=== PATIENT | female | born 1985 | race Caucasian/White ===

== ENCOUNTER 2022-06-18 09:15 | Day surgery (SDC) | payer MEDICAID, SELFPAY ==
[2022-06-18] VITALS (7 sets, daily range): BP systolic 93–115; BP diastolic 30–63; PULSE 51–72; RESP 14–18; TEMP 36.2–36.6; O2SAT 99–100; BMI 32.3
--- NOTE | 2022-06-18 09:30 | PCM.HP.BLA ---
History and Physical Date of Admission: 06/18/22 Chief complaint: Permanent sterilization History present illness: 36-year-old arrives for desired permanent sterilization via bilateral salpingectomy. All questions answered and consent signed Obstetric history: with a history of 3 vaginal deliveries Past medical history: None Past surgical history: Hernia repair Medications: None Allergies: Penicillin Social history: Former smoker, denies alcohol or drug use Family history: Denies history DVT or PE Review of systems: Besides above pertinent positives a full review of systems was performed and found to be negative Physical exam: Vitals: Pending General: Normal-appearing no acute distress HEENT: Normocephalic/atraumatic no cervical lymphadenopathy Cardiac/respiratory: No use of accessory muscles, nonlabored breathing Abdomen: Soft, nontender, obese Extremities: No peripheral edema normal peripheral pulses Psych: Normal affect and demeanor nonpressured speech Assessment and plan: 36-year-old desires permanent sterilization scheduled for bilateral salpingectomy. Patient understands risk of the procedure include but are not limited to visceral or vascular injury, prolonged hospitalization, blood loss and need for transfusion, reoperation. Patient state understanding and wished to proceed. All questions were answered and consent was signed.
[2022-06-18] MEDS: Lactated Ringers 1,000 ML 120 ML IV ×2 (09:50→13:10)
[2022-06-18 09:55] LABS: Internal QC Validated? YES +Cl - CLEAR BKGD; Pregnancy, Urine Negative Negative
--- NOTE | 2022-06-18 10:50 | FALS_PTH ---
PATIENT: JULIO MENJIVAR [place] [facility] [id number] AGE/SX: 36/F ROOM: RE06/18/[address]: Dr. Dontrell Martinez MD : 1985 BED: DIS: 06/18/2022 SPEC #: [id number] RECD: 06/18/22 16:16 STATUS: BRITTANY CASTILLO #: [id number] KIMBERLY: 06/18/22 10:[address]: Dontrell Martinez DEPT: SURGICAL PATHOLOGY RECD BY: Linsey Milner ENTERED: 06/19/22 10:04 SP TYPE: FALL TUBES OTHR DR: Dr. Nomi Atkins MD Tissues: Fallopian tube Procedures: Surgery Specimen Level II Surgery Specimen Level IV HEADER OPERATION: Laparoscopic salpingectomy PRE-OP DIAGNOSIS: Sterilization TISSUE SUBMITTED: Bilateral fallopian tubes MICROSCOPIC DIAGNOSIS Right and left fallopian tubes, bilateral salpingectomies: Complete cross-sections of right and left fallopian tubes. Benign paratubal cyst of one fallopian tube. AM:maria m 06/20/2022 MICROSCOPIC DESCRIPTION Slides are reviewed. GROSS DESCRIPTION Received in fixative is one container labeled with the patient's name and designated bilateral fallopian tubes. The specimen consists of bilateral fallopian tubes including fimbrial ends measuring 6.0 cm in length and 0.6 cm in diameter and 5.5 cm in length and 0.5 cm in diameter. One of the fallopian tubes also shows a paratubal cyst filled with clear fluid measuring 1.0 cm in greatest dimension. The fallopian tubes are not identified as right or left. Sections reveal unremarkable cut surfaces. [employer] sections are submitted in two cassettes as follows: 1 - one fallopian tube, 2 - second fallopian tube and paratubal cyst. / SJ:maria m 06/19/2022 TC:5 CPT: 93715, 09656
--- NOTE | 2022-06-18 12:18 | DCINST_ITS ---
Discharge Instructions Diet Discharge Diet: No restrictions Activity Discharge Activity: Return to Normal Activity, May Drive, May Shower and - (No tub baths for 2 weeks) May resume sexual activity in: 4-6 weeks Lifting Restrictions: No lifting over 25 pounds for 3 weeks Dressing / Incision Call your doctor if your incision/area has: Continuous Slow Oozing and Foul Smelling Discharge Call your doctor if you observe: Fever of 101 or Higher, Shortness of breath and Chest pain Follow Up Care Please Follow Up With: Dontrell Martinez MD When: 2 weeks postoperatively Test Results: Test results from this visit will be discussed in further detail at your follow- up appointment, if applicable. Discharge Plan Admission Attending Provider: Dontrell Martinez Primary Care Provider: Nomi Atkins Discharge Orders/Prescriptions Prescriptions: No Action NK Referrals / Follow Up: Nomi Atkins MD [Primary Care Provider] - Disposition Disposition (needs filled in before D/C Order can be placed): Home, Self Care
--- NOTE | 2022-06-18 12:19 | PCM.OPRPT ---
Report of Operation Date of Procedure: 06/18/22 Pre-Operative Diagnosis: Desires permanent sterilization Post-Operative Diagnosis: Desires permanent sterilization Surgery/Procedure Performed:: Laparoscopic bilateral salpingectomy Description of Surgical Findings:: Surgeon: Dontrell Martinez MD Anesthesia: General EBL: 25 cc Urine output: 400 cc IV fluids: 900 cc Complications: None Specimen: Bilateral fallopian tubes Findings: Large amount of anterior abdominal wall adhesions at umbilicus and above including left upper quadrant. Serrato's point Optiview entry attempted with adhesions suspected, left lower quadrant Optiview was attempted. After these attempts open technique was used at the infra umbilicus. Trocar was inserted and laparoscope was inserted and above findings were noted, Serrato's point was inspected intra-abdominally only damage to omental adhesions, no bowel damage noted and overall hemostatic. Otherwise normal uterus, tubes, and ovaries. Consent: Patient desires permanent sterilization elects for laparoscopic bilateral salpingectomy. Patient understands the risk of the procedure include but are not limited to visceral or vascular injury, prolonged hospitalization, blood loss need and for transfusion, reoperation. Patient states understanding and wished to proceed. All questions were answered and consent was signed. Procedure: Patient was brought back to the OR where general anesthesia was found to be adequate. Patient was prepared and draped in dorsolithotomy position with yellowfin stirrups. Weighted speculum placed in the posterior aspect of vagina and cervical dilators were used to dilate the cervix. Uterine manipulator was placed. 5 mm incision was made at Serrato's point using Optiview 5 mm trocar was inserted under direct visualization. Could not obtain access via Serrato's point Optiview, with adhesions suspected. Left lower quadrant 5 mm trocar incision was made and 5 mm Optiview trocar was inserted under direct visualization, abdominal access could not be obtained. Infraumbilical Allis horizontally was placed and horizontal infraumbilical midline incision was made. Fascia was grasped with a [place] x2. Fascia was dissected with 11 blade scalpel. Finger was placed into the fascial incision and noted to be intra-abdominal. Fascia was tagged at its lateral corners. 10 mm Patel trocar was inserted under direct visualization. Abdomen was insufflated, Patel trocar was secured. Laparoscope was inserted and above findings were noted including inspection of previous insertion sites including left upper quadrant investigation of left upper quadrant adhesions and Serrato's point entry, overall hemostatic no signs of visceral damage. Using previous left lower quadrant incision 5 mm trocar was inserted under direct visualization. Right lower quadrant 8 mm trocar incision was made and an 8 mm trocar was inserted under direct visualization. Using atraumatic grasper and a LigaSure device the right fallopian tube was identified to the fimbria and the mesosalpinx was cut and cauterized, fallopian tube was transected at the cornua. Right fallopian tube was removed from the abdominal cavity and sent to pathology. In a similar fashion the left fallopian tube was identified out to the fimbriated end and the mesosalpinx was cut and cauterized, fallopian tube was transected at the cornua. Left loping tube was removed from the abdominal cavity and sent to pathology. Bilateral surgical sites were hemostatic. Patel 10 mm trocar was removed and Curtis Topete device was inserted, 0 Vicryl suture was used to reapproximate the 10 mm trocar incision fascia. Remaining trocar fascia was reapproximated with [id number] 0 Vicryl suture. Good hemostasis was noted. All trocar sites were closed in a subcutaneous fashion. Good hemostasis was noted. All counts were correct x2. Patient tolerated procedure well and was brought to recovery in stable condition.
[2022-06-18] MEDS: Ketorolac 30 MG/ML Syringe IV (13:11)
== END 2022-06-18 15:35 | disposition home or self-care (01) ==
LOC: SDC 09:16 → AC 09:18
PROVIDERS: Anesthesiology; PCP Family Medicine; Referring Provider Obstetrics & Gynecology; Visit Provider Obstetrics & Gynecology
PROC: (CPT 58661; principal; 2022-06-18 10:35)
DX: Z30.2 Encounter for sterilization (principal); N83.8 Other noninflammatory disorders of ovary, fallopian tube and broad ligament; Z87.891 Personal history of nicotine dependence
CPT/HCPCS: 58661; 00840; 81025; 88302; 88305; J7120; J0330; J2405